=== PATIENT | female | born 1940 | race Caucasian/White ===

== ENCOUNTER 2017-11-25 20:48 | Inpatient (IN) | payer OTHER ==
[~2017-11-25] VITALS: Ht 170.2 cm; Wt 90.4 kg
[2017-11-25 21:25] LABS: BASOPHIL % 0.4 % (0-2); PLATELET COUNT 276 x10^3mcL (130-400); RED CELL DISTRIBUTION WIDTH 13.7 % (11.5-14.5)
[2017-11-25 21:41] LABS: CALCIUM 9.7 mg/dL (8.5-10.1); CARBON DIOXIDE 21.3 mmol/L (21-32); CHLORIDE SERUM 99 mmol/L (98-107); CREATININE SERUM 1.6 mg/dL (0.6-1.0); GLUCOSE SERUM 160 mg/dL (74-106); POTASSIUM SERUM 3.6 mmol/L (3.5-5.1); SODIUM SERUM 136 mmol/L (136-145)
[2017-11-25 21:53] LABS: ALBUMIN 3.9 g/dL (3.4-5.0); ALKALINE PHOSPHATASE 76 U/L (46-116); ALT/SGPT 28 U/L (14-59); AST/SGOT 13 U/L (15-37); BILIRUBIN TOTAL 1.25 mg/dL (0.20-1.00); T4(THYROXINE) 9.6 ug/dL (4.7-13.3); TOTAL PROTEIN, SERUM 7.4 g/dL (6.4-8.2)
[2017-11-25 22:48] LABS: AMPHETAMINE QUAL UR NONE DETECTED (See below)
[2017-11-26] MEDS ORDERED: METOPROLOL TART50 MG PO (04:18)
[2017-11-26] MEDS ORDERED: PAXIL40 M1 PO (04:20)
[2017-11-26] MEDS ORDERED: LEVOTHYROXINE0.1 M2 PO (04:21)
[2017-11-26 06:09] VITALS: BP 136/69
[2017-11-26 09:00] VITALS: BP 92/67
[2017-11-26 12:58] VITALS: BP 101/53
[2017-11-26 13:39] LABS: microscopic required? NO
[2017-11-26 14:27] LABS: UA SPECIFIC GRAVITY 1.025 (1.005-1.035); urine erythrocyte NEGATIVE (NEGATIVE)
[2017-11-26 16:46] VITALS: BP 137/82
[2017-11-26 20:44] VITALS: BP 103/59
[2017-11-26 21:54] VITALS: Ht 170.2 cm; Wt 90.4 kg
[2017-11-27 05:50] VITALS: BP 100/57
[2017-11-27 06:53] LABS: BASOPHIL % 0.6 % (0-2); PLATELET COUNT 217 x10^3mcL (130-400); RED CELL DISTRIBUTION WIDTH 13.7 % (11.5-14.5)
[2017-11-27 06:59] LABS: CARBON DIOXIDE 25.4 mmol/L (21-32); CHLORIDE SERUM 102 mmol/L (98-107); CREATININE SERUM 1.2 mg/dL (0.6-1.0); POTASSIUM SERUM 3.4 mmol/L (3.5-5.1); SODIUM SERUM 138 mmol/L (136-145)
[2017-11-27 07:07] LABS: CALCIUM 8.9 mg/dL (8.5-10.1); GLUCOSE SERUM 136 mg/dL (74-106)
[2017-11-27 14:03] VITALS: BP 166/50
[2017-11-27 18:26] VITALS: BP 110/90
[2017-11-27 19:15] VITALS: BP 128/62
[2017-11-28 06:08] VITALS: BP 151/69
[2017-11-28 08:36] VITALS: BP 157/71
[2017-11-28 20:31] VITALS: BP 103/65
[2017-11-29 05:58] VITALS: BP 143/66
[2017-11-29 08:46] VITALS: BP 137/62
[2017-11-29 15:55] VITALS: BP 120/60
[2017-11-29 22:00] VITALS: BP 101/62
[2017-11-30 05:06] VITALS: BP 133/58
[2017-11-30 08:07] VITALS: BP 148/66
[2017-11-30 12:42] VITALS: BP 136/67
[2017-11-30 16:13] VITALS: BP 123/61
[2017-11-30 20:30] VITALS: BP 138/58
[2017-12-01 05:31] VITALS: BP 135/54; BP 135/84
[2017-12-01 10:58] VITALS: BP 132/50
[2017-12-01 15:05] VITALS: BP 120/41
[2017-12-01 18:26] VITALS: BP 151/69
[2017-12-01 21:35] VITALS: BP 118/50
[2017-12-02 06:20] VITALS: BP 140/52
[2017-12-02 08:52] VITALS: BP 135/61
[2017-12-02 17:05] VITALS: BP 135/61
== END 2017-12-02 19:17 | disposition home or self-care (01) | DRG 885 ==
LOC: ED 20:48 → DU 11-26 04:19
PROVIDERS: Emergency Medicine; Internal Medicine
DX: F23 Brief psychotic disorder (principal); G92 Toxic encephalopathy; R44.0 Auditory hallucinations; R44.1 Visual hallucinations; R41.0 Disorientation, unspecified; T38.1X5A Adverse effect of thyroid hormones and substitutes, initial encounter; E87.6 Hypokalemia; I10 Essential (primary) hypertension; E03.9 Hypothyroidism, unspecified; F03.90 Unspecified dementia, unspecified severity, without behavioral disturbance, psychotic disturbance, mood disturbance, and anxiety; Z68.39 Body mass index [BMI] 39.0-39.9, adult; Y92.009 Unspecified place in unspecified non-institutional (private) residence as the place of occurrence of the external cause
CPT/HCPCS: 82962; 83880; G0480; J3490; J7030